=== PATIENT | female | born 1965 | race Caucasian/White ===

== ENCOUNTER 2021-04-23 22:10 | Emergency (ER) | payer MEDICAID ==
[~2021-04-23] VITALS: Ht 157.5 cm; Wt 77.1 kg
[2021-04-23 22:27] VITALS: BP 127/83
[2021-04-23] MEDS ORDERED: IBUPROFEN 400 MG TABLET ONE (22:35)
[2021-04-23] MEDS: IBUPROFEN 400 MG TABLET PO ONE (22:42)
--- NOTE | 2021-04-23 22:42 | NUR ---
XRAY AT BEDSIDE
== END 2021-04-23 22:51 | disposition home or self-care (01) ==
LOC: ER 22:13
DX: S83.8X2A Sprain of other specified parts of left knee, initial encounter (principal); W18.39XA Other fall on same level, initial encounter; Y93.89 Activity, other specified; Y92.89 Other specified places as the place of occurrence of the external cause; Y99.8 Other external cause status
CPT/HCPCS: 73564-TC

== ENCOUNTER 2021-07-13 13:38 | Emergency (ER) | payer OTHER ==
[~2021-07-13] VITALS: Ht 157.5 cm; Wt 74.8 kg
[2021-07-13 13:47] VITALS: BP 124/67
--- NOTE | 2021-07-13 13:48 | NUR ---
BIBS FOR C/O LT KNEE PAIN X 2 MOS. RATES PAIN 5/10. JULI[facility]N PEDAL PULSES PRESENT. WILL CONTINUE TO MONITOR THE PATIENT.
[2021-07-13] MEDS ORDERED: KETOROLAC TROMETHAMINE 15 MG/ML VIAL ONE (15:52)
[2021-07-13] MEDS: KETOROLAC TROMETHAMINE INJ 30 MG/ML VIAL IM ONE (15:56)
--- NOTE | 2021-07-13 16:00 | NUR ---
Patient discharged to home in stable condition. Written and verbal after care instructions given. Patient verbalizes understanding of instruction.
== END 2021-07-13 16:01 | disposition home or self-care (01) ==
LOC: ER 13:42
DX: S83.8X2D Sprain of other specified parts of left knee, subsequent encounter (principal); R22.42 Localized swelling, mass and lump, left lower limb; X58.XXXD Exposure to other specified factors, subsequent encounter
CPT/HCPCS: 73564; 93971; 96372; 99284; J1885